=== PATIENT | female | born 1935 | race Caucasian/White ===

== ENCOUNTER 2019-03-25 10:57 | Emergency (ER) | payer MEDICARE ==
[2019-03-25 11:16] LABS: #Eosinphils 0.1 thou/uL (0.0-0.7); #Monocytes 0.5 thou/uL (0.11-0.59); #Neutrophils 4.3 thou/uL (1.40-6.50); %Basophils 0.3 % (0.0-1.0); %Eosinophils 0.8 % (0.0-10.0); %Lymphocytes 29.2 % (21.0-51.0); %Monocytes 7.5 % (0.0-10.0); %Neutrophils 62.1 % (42.0-75.0); Hemoglobin 14.2 g/dL (12.0-16.0); Mean Corpuscular HGB CONC 32.4 g/dL (32.0-36.0); Mean Corpuscular Volume 95.7 fL (78.0-98.0); Mean Platelet Volume 7.9 fL (7.4-10.4); Platelet Count 196 thou/uL (130-400); RBC Distribution Width 11.6 % (11.5-14.5); Red Blood Cell (RBC) Count 4.58 mill/uL (4.20-5.40); White Blood Cell (WBC) Count 6.9 thou/uL (4.8-10.8)
--- NOTE | 2019-03-25 11:31 | CT ---
CT BRAIN NONCONTRAST: DATE: 03/25/2019 HISTORY: 83-year-old female with level 1 stroke alert, loss of consciousness. Altered mental status. Dr. Manuel called this level 1 stroke alert protocol report stat to Dr. Thomason at 11:28 AM on 03/25/2019. FINDINGS: There is no evidence of acute intra-axial or extra-axial hemorrhage. There is no midline shift or any other mass effect. There is no extra-axial fluid collection. There is mild to moderate dilation of lateral and third ventricles.. Calvarium is intact. There is diffuse brain parenchymal volume loss. T here are low attenuation areas in the white matter. These are nonspecific, but in a patient of this age, they are probably chronic ischemic white matter changes due to microvascular atherosclerosis. Sm all focus of encephalomalacia and gliosis in the left occipital lobe. Questionable smaller such lesion at the right medial temporal region. IMPRESSION: 1) No acute intracranial findings. 2) involutional changes and chronic ischemic white matter changes. 3) small old left occipital infarction in left posterior cerebral artery territory. (Possibly another one in the right medial temporal lobe). 4) ventriculomegaly
[2019-03-25 11:35] LABS: PTT 29.2 SEC (22.9-36.1); Prothrombin Time 12.7 SEC (12.0-14.7)
[2019-03-25 11:36] LABS: ALT (SGPT) 11 U/L (8-55); AST (SGOT) 17 U/L (5-34); Albumin 3.3 g/dL (3.4-4.8); Alkaline Phosphatase 91 U/L (40-110); Anion Gap 15 mmol/L (10-20); BUN (Urea Nitrogen) 15 mg/dL (9.8-20.1); Bilirubin, Total 0.5 mg/dL (0.2-1.2); CK (CPK) 24 U/L (29-168); Calc. Creatinine Clearance 0 mL/min (70-130); Calcium 8.7 mg/dL (7.8-10.44); Carbon Dioxide 20 mmol/L (23-31); Chloride 104 mmol/L (98-107); Estimated GFR-MDRD 72; Globulin 3.3 g/dL (2.4-3.5); Glucose 96 mg/dL (83-110); Protein, Total 6.6 g/dL (6.0-8.3); Sodium 134 mmol/L (136-145)
--- NOTE | 2019-03-25 11:53 | RAD ---
EXAM: CHEST ONE VIEW HISTORY: Altered mental status. Level 1 stroke alert. COMPARISON: None FINDINGS: The cardiac silhouette and pulmonary vasculature is within normal limits. There is increased density lateral left lung base probably related to an epicardial fat pad. No obvious pleural effusion is seen, and there is no consolidation seen within the lungs bilaterally. Osteopenia is present, and the re is bilateral glenohumeral osteoarthropathy. The humeral heads also appear to be high riding bilaterally which suggests chronic bilateral rotator cuff tears. Vascular calcifications are seen in the thoracic aorta. IMPRESSION: No acute cardiopulmonary process.
[2019-03-25 12:20] LABS: Bilirubin Negative (Negative); Blood, Urine Negative (Negative); Clarity Clear (Clear); Glucose, Urine (Dipstick) Normal (Negative); Leukocyte Negative Leu/uL (Negative); Nitrite Negative (Negative); Protein, Urine (Dipstick) Negative (Neg-Trace); Urobilinogen Normal mg/dL (Less than 2)
[2019-03-25] MEDS ORDERED: Furosemide 40 MG/4 ML VIAL ONE (13:24)
== END 2019-03-25 13:45 | disposition home or self-care (01) ==
LOC: ERS 10:57
DX: R41.82 Altered mental status, unspecified (principal); E03.9 Hypothyroidism, unspecified; K21.9 Gastro-esophageal reflux disease without esophagitis; D64.9 Anemia, unspecified; I10 Essential (primary) hypertension; F03.90 Unspecified dementia, unspecified severity, without behavioral disturbance, psychotic disturbance, mood disturbance, and anxiety; F41.9 Anxiety disorder, unspecified; Z79.82 Long term (current) use of aspirin; Z86.73 Personal history of transient ischemic attack (TIA), and cerebral infarction without residual deficits; Z79.899 Other long term (current) drug therapy
CPT/HCPCS: 70450; 71045; 80053; 81003; 82550; 83690; 84484; 85025; 85610; 85730; 93005; 96374; J1940

== ENCOUNTER 2019-06-06 08:39 | Inpatient (IN) | payer MEDICARE ==
[2019-06-06 09:11] LABS: #Basophils 0.1 thou/uL (0.0-0.2); #Eosinphils 0.1 thou/uL (0.0-0.7); #Monocytes 0.7 thou/uL (0.11-0.59); #Neutrophils 4.4 thou/uL (1.40-6.50); %Basophils 0.9 % (0.0-1.0); %Lymphocytes 36.6 % (21.0-51.0); %Monocytes 7.9 % (0.0-10.0); %Neutrophils 53.5 % (42.0-75.0); Mean Corpuscular HGB CONC 32.7 g/dL (32.0-36.0); Mean Corpuscular Hemoglobin 29.5 pg (27.0-31.0); Mean Corpuscular Volume 90.5 fL (78.0-98.0); Mean Platelet Volume 8.5 fL (7.4-10.4); Platelet Count 247 thou/uL (130-400); RBC Distribution Width 12.2 % (11.5-14.5); Red Blood Cell (RBC) Count 5.09 mill/uL (4.20-5.40); White Blood Cell (WBC) Count 8.3 thou/uL (4.8-10.8)
--- NOTE | 2019-06-06 09:16 | CT ---
Exam: CT brain PROVIDED CLINICAL HISTORY: Left-sided weakness COMPARISON: 03/25/2019 FINDINGS: The ventricular system is normal in size and morphology. No evidence for intracranial hemorrhage or mass effect. The extracranial soft tissues and osseous structures demonstrate no evidence for an acute abnormality. Chronic ischemic changes appear stable. IMPRESSION: No evidence for intracranial hemorrhage or mass effect. Findings communicated to Dr. Thomason 9:13 AM 05/19.
[2019-06-06 09:52] LABS: ALT (SGPT) 17 U/L (8-55); AST (SGOT) 25 U/L (5-34); Albumin 3.5 g/dL (3.4-4.8); Alkaline Phosphatase 107 U/L (40-110); Anion Gap 16 mmol/L (10-20); BUN (Urea Nitrogen) 19 mg/dL (9.8-20.1); Bilirubin, Total 0.3 mg/dL (0.2-1.2); CK (CPK) 44 U/L (29-168); Calc. Creatinine Clearance 0 mL/min (70-130); Calcium 9.2 mg/dL (7.8-10.44); Carbon Dioxide 26 mmol/L (23-31); Chloride 98 mmol/L (98-107); Estimated GFR-MDRD 72; Globulin 3.7 g/dL (2.4-3.5); Glucose 122 mg/dL (83-110); Potassium 4.4 mmol/L (3.5-5.1); Protein, Total 7.2 g/dL (6.0-8.3); Sodium 136 mmol/L (136-145)
[2019-06-06 10:25] LABS: Bilirubin Negative (Negative); Blood, Urine Negative (Negative); Clarity Turbid (Clear); Glucose, Urine (Dipstick) Normal (Negative); Leukocyte 500 Leu/uL (Negative); Nitrite Negative (Negative); Protein, Urine (Dipstick) 10 mg/dL (Neg-Trace); Squamous Epithelial 0-3 HPF (0-3); Urobilinogen Normal mg/dL (Less than 2); WBC/HPF Greater than 50 HPF (0-3)
[2019-06-06 10:44] LABS: Bacteria/HPF 2+ HPF (None Seen)
[2019-06-06] MEDS ORDERED: Aspirin 81 mg Enteric Coated Tablet ONE (11:06)
[2019-06-06] MEDS ORDERED: cefTRIAXone\\ROCEPHIN 2 GM VIAL ONE (11:06)
[2019-06-06] MEDS ORDERED: Ondansetron PF 4 MG/2 ML Vial IVP PRN (12:10)
[2019-06-06] MEDS ORDERED: Ondansetron ODT 4 MG TAB SL PRN (12:10)
[2019-06-06 12:27] LABS: Troponin I Less than 0.010 ng/mL (< 0.028)
[2019-06-06 14:07] VITALS: BMI 18.8
[2019-06-06 15:23] LABS: Troponin I 0.019 ng/mL (< 0.028)
[2019-06-06] MEDS: Acetaminophen 325 MG TAB PO PRN (18:26)
--- NOTE | 2019-06-06 20:37 | HP ---
CHIEF COMPLAINT: Left-sided weakness and vision problems. HISTORY OF PRESENT ILLNESS: Ms. Medina is an 84-year-old female with past medical history of atrial fibrillation, hypertension, hyperlipidemia, hypothyroidism, previous CVA, was noted to have left-sided weakness since last night. The patient usually can walk with her walker, now she is unable to do so secondary to left-sided weakness, requiring lot of assistance. Also is unable to see on the left side, so she could not to openly use the walker last night and this morning. Also complaining of generalized weakness as well. The patient was trying to lean to the left side, so the patient was brought to the emergency room, where she was evaluated and found to have left-sided weakness. CT of the brain was done, which was unremarkable. She is admitted for further evaluation and management. PAST MEDICAL HISTORY: 1. Hypertension. 2. Hyperlipidemia. 3. Chronic atrial fibrillation. 4. Hypothyroidism. 5. History of CVA. 6. Gastroesophageal reflux disease. 7. History of esophagitis. 8. History of chronic anemia. 9. History of hypokalemia. PAST SURGICAL HISTORY: Status post hysterectomy, status post removal of left breast lump. CURRENT MEDICATIONS: 1. Aspirin 81 mg daily. 2. Atenolol 50 mg b.i.d. 3. Omeprazole 20 mg daily. 4. KCl 20 mEq daily. 5. Hydrochlorothiazide 25 mg daily. 6. Synthroid 137 mcg daily. 7. Melatonin 3 mg at bedtime. ALLERGIES: PENICILLIN, LEVOFLOXACIN, NORVASC. REVIEW OF SYSTEMS: CARDIOVASCULAR: No chest pain. No shortness of breath. RESPIRATORY: No fever or cough. GASTROINTESTINAL: No nausea, vomiting, or abdominal pain. CENTRAL NERVOUS SYSTEM: No headache. No dizziness. PHYSICAL EXAMINATION: GENERAL: The patient is awake, alert, not well oriented. VITAL SIGNS: Temperature 98, pulse 60, respirations 20, and blood pressure 120/ 60. HEENT: Head is normocephalic and atraumatic. Pupils are equal, round, and reactive. Nasopharynx is dry and pale. NECK: Supple. No JVD. LUNGS: Bilateral air entry present. No rales. No rhonchi. HEART: S1 and S2. Irregularly irregular. ABDOMEN: Soft. No distention. No tenderness. Normal bowel sounds present. RECTAL: Deferred. CENTRAL NERVOUS SYSTEM: The patient is alert, awake, and oriented x2. Motor system, power 4/5 in right upper and lower extremity and 3/5 in left upper and lower extremity. Deep tendon reflex 2+ bilaterally. Plantar downgoing on the right, upgoing on the left. LABORATORY DATA: CBC shows WBC 8.3, hemoglobin 15, hematocrit 46, platelets 247. Metabolic panel; sodium 136, potassium 4.4, chloride 98, CO2 of 26, urea nitrogen 19, creatinine 0.7, glucose , troponin 0.010. Urinalysis showed wbc greater than [address] bacteria 2+. CT scan of brain did not show any acute intracranial abnormalities. EKG showed atrial fibrillation with controlled ventricular rate. No acute ST-T changes seen. ASSESSMENT: 1. Acute cerebrovascular accident with left hemiparesis and visual field defect, left side. 2. Urinary tract infection. 3. Hypertension. 4. Atrial fibrillation, chronic. 5. Hypothyroidism. 6. Hyperlipidemia. PLAN: 1. Vital signs q.4 hours. 2. Activities as tolerated. 3. Allergies; penicillin, Levaquin, and Norvasc. 4. Rocephin 1 g IV piggyback daily. 5. Continue home medications. 6. Plavix 75 mg daily, aspirin 81 mg daily. 7. Diet, regular. 8. Stroke Team consult. 9. MRI of the brain in the morning. 10. Neurology consult. Job ID: [id number] MTDD
[2019-06-06] MEDS: Atenolol 50 MG TAB PO SCH (21:04)
[2019-06-06] MEDS: Melatonin 3 MG TAB PO PRN (22:51)
[2019-06-07] MEDS ORDERED: Lorazepam 2 MG/ML VIAL SLOW IVP SCH ×2 (06:00→20:00)
[2019-06-07] MEDS ORDERED: Clopidogrel Bisulfate 75 MG TAB PO SCH ×2 (09:00→16:45)
--- NOTE | 2019-06-07 09:41 | MRI ---
BRAIN MRI WITHOUT CONTRAST: Date: 06/07/2019 COMPARISON: None. HISTORY: Left-sided weakness, evaluate for acute infarction. TECHNIQUE: Multiplanar, multisequence MR imaging of the brain is obtained without contrast. FINDINGS: There is a linear focus of restricted diffusion within the thalamus on the right measuring 1.2 x 0.6 cm, consistent with an area of acute infarction. There are a few punctate foci of restricted diffusio n also seen within the occipital lobe on the right posteriorly, inferior to the occipital horn of the right lateral ventricle. The gradient echo imaging demonstrates no evidence for intracranial hemorrh age. There is encephalomalacia in the left occipital region. There is multifocal periventricular, deep, an d subcortical white matter T2 and FLAIR hyperintensity, evidence of small vessel disease. Partial opacification of the mastoid air cells noted, left greater than right. No midline shift or ma ss effect. Regional bone marrow signal intensity grossly unremarkable. There is an incompletely assessed round 1.1 cm lesion in the right cerebellopontine angle with extens ion into the right internal auditory canal. This lesion measures 1.9 cm in AP dimension and likely re presents vestibular schwannoma. This could be best assessed with a follow-up contrast enhanced MRI. Linear area of acute infarction noted within the anteromedial aspect of the right temporal lobe adjac ent to the temporal horn of the right lateral ventricle. IMPRESSION: 1. Multifocal acute infarction on the right as detailed above. No intracranial hemorrhage. 2. Lesion in the region of the cerebellopontine angle on the right extending into the region of the internal auditory canal suggesting right-sided vestibular schwannoma as detailed above. Post contras t study using an IAC protocol recommended. POS: ALONDRA
[2019-06-07] MEDS: Aspirin 81 mg Enteric Coated Tablet PO SCH (10:05)
[2019-06-07] MEDS: Hydrochlorothiazide 25 MG TAB PO SCH (10:06)
[2019-06-07] MEDS: Atenolol 50 MG TAB PO SCH ×2 (11:49→20:36)
--- NOTE | 2019-06-07 12:09 | ULT ---
BILATERAL CAROTID DUPLEX ULTRASOUND: HISTORY: Acute CVA TECHNIQUE: Grayscale, color-flow and spectral Doppler ultrasound imaging of the extracranial carotid artery syst ems and vertebral arteries was performed bilaterally. FINDINGS: There is moderate intimal thickening of the common carotid arteries bilaterally. There is moderate pa rtially calcified atherosclerotic plaque involving the left carotid bulb and proximal left ICA. There is moderate partially calcified atherosclerotic plaque involving the right carotid bulb and pro ximal right ICA. The peak systolic velocity in the right ICA measures 79.2 cm/s. The peak systolic velocity in the ri ght CCA measures 48.1 cm/s. The peak systolic velocity in the left ICA measures 87.5 cm/s. The peak systolic velocity in the l eft CCA measures 65.6 cm/s. The right IC/CC ratio is1.65. The left IC/CC ratio is 1.57. Vertebral flow: antegrade, bilaterally. . IMPRESSION: No hemodynamically significant stenosis of Both ICAs.
[2019-06-07] MEDS: cefTRIAXone\\ROCEPHIN 1 GM in Sodium Chloride 0.9% 100 ML IVPB SCH (12:39)
[2019-06-07] MEDS: Acetaminophen 325 MG TAB PO PRN ×2 (15:28→22:42)
[2019-06-07] MEDS: Melatonin 3 MG TAB PO PRN (20:36)
[2019-06-07] MEDS ORDERED: diphenhydrAMINE 12.5 MG/5 ML UDCUP PO SCH (23:45)
[2019-06-08] MEDS: Levothyroxine Sodium 25 MCG TAB PO SCH (06:52)
[2019-06-08] MEDS: Levothyroxine Sodium 112 MCG TAB PO SCH (06:52)
[2019-06-08] MEDS: Clopidogrel Bisulfate 75 MG TAB PO SCH (09:49)
[2019-06-08] MEDS: Hydrochlorothiazide 25 MG TAB PO SCH (09:49)
[2019-06-08] MEDS: Atenolol 50 MG TAB PO SCH ×2 (09:50→20:02)
[2019-06-08] MEDS: Aspirin 81 mg Enteric Coated Tablet PO SCH (09:50)
--- NOTE | 2019-06-08 11:56 | MRI ---
MRI of thebrain with and without contrast: 06/08/2019 COMPARISON: 06/07/2019 HISTORY:Incidentally noted mass in the region of the right cerebellopontine angle on recent noncontra st enhanced study TECHNIQUE: Multiplanar multisequence MR imaging of thebrain with and without contrast. An internal au ditory canal protocol was attempted. Findings:Thin section T2 weighted imaging at the skull base was performed but is nondiagnostic second kaur to motion. Postcontrast imaging is provided, demonstrating a round enhancing lesion within the right cerebellopontine angle measuring 1.4 cm in transverse dimension. This lesion extends into the i nternal auditory canal. The component of tumor within the right internal auditory canal measures 1 cm in AP dimension and the entirety of the mass measures 2.1 cm AP dimension and 1.4 cm in transverse dimension. Whole brain postcontrast imaging demonstrates no intra-axial enhancement. No additional enhancing lesion is noted. There is no abnormal enhancement involving the region of the cochlea, vestibule, or semicircular canals on either side. The left IAC appears unremarkable. IMPRESSION:Enhancing mass lesion centered in the right cerebellopontine angle with extension into the right internal auditory canal. 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
[2019-06-08] MEDS: cefTRIAXone\\ROCEPHIN 1 GM in Sodium Chloride 0.9% 100 ML IVPB SCH (12:03)
--- NOTE | 2019-06-08 16:51 | PDOC.PALCO ---
Palliative Care Consult - Consult Details Requesting Physician: Dr Car Reason for Consult: goals of care Family Members Present: Caregiver - Allergies Allergies/Adverse Reactions: Allergies Allergy/AdvReac Type Severity Reaction Status Date / Time amlodipine [From Norvasc] Allergy Unverified 06/06/19 12:09 levofloxacin [From Levaquin] Allergy Unverified 06/06/19 12:09 ofloxacin [From Floxin] Allergy Unverified 06/06/19 12:08 Penicillins Allergy Unverified 06/06/19 12:09 - Objective Vital Signs: Vital Signs - Most Recent Temp Pulse Resp BP Pulse Ox 97.6 F 66 16 159/67 H 98 06/08/19 15:09 06/08/19 15:09 06/08/19 15:09 06/08/19 15:09 06/08/19 15:09 - Plan/Recommendations Plan: *Daughter to return later. Patient has lived next door to her mother with 24/7 hour paid caregivers *Ambulates with walker and requires assistance secondary to physical deconditioning, intermittant incontinence and assistance required with ADL's *Will establish goals of care as patient appears to not be able to maintain activity that would be required at inpatient rehab, may consider SNF. *Would transition home with home health PT and if continued decline utilize hospice to mitigate symptoms in the home setting be optimal? Palliative care to continue to follow Lina Gonzales RN also seeing patient [] minutes spent on this encounter with >50% of the time in counseling and coordination of care. Thank you for this very appropriate consult.
[2019-06-08] MEDS: Acetaminophen 325 MG TAB PO PRN (17:29)
[2019-06-08] MEDS: Melatonin 3 MG TAB PO PRN (20:03)
[2019-06-08] MEDS: diphenhydrAMINE 25 MG CAP PO PRN (20:03)
--- NOTE | 2019-06-09 00:49 | CON ---
DATE OF CONSULTATION: 06/08/2019 CONSULTING PHYSICIAN: Todd Car MD IMPRESSION: 1. Basal ganglia stroke with no significant residual deficits. 2. Dementia. PLAN: 1. Add Plavix. 2. Determine path of placement. HISTORY OF PRESENT ILLNESS: Ms. Medina is an 84-year-old woman with a past history of dementia. She was living with her daughter at her house. She had been in a longterm unit for 100 days and was only recently discharged. She had a change in mental status and was brought in. She has a history of atrial fibrillation. MRI of the brain revealed a new right basal ganglia stroke. There were some tiny areas of ischemia in the right occipital lobe as well. Her urinalysis suggested a urinary tract infection. Lab work was otherwise unremarkable. Her carotid ultrasound was clear. I discussed the situation with her daughter yesterday and they were willing to let her go on Plavix. They have been very fearful of any type of anticoagulation. PAST MEDICAL HISTORY: As listed above. ALLERGIES: FLOXIN, NORVASC, PENICILLIN. SOCIAL HISTORY: No tobacco or alcohol use. FAMILY HISTORY: Noncontributory. REVIEW OF SYSTEMS: Ten-system review of systems is otherwise unremarkable. PHYSICAL EXAMINATION: GENERAL: She is a reasonably healthy-appearing elderly lady, lying in bed, in no acute distress. VITAL SIGNS: Have been stable with a blood pressure 159/67, pulse is 66 and in atrial fibrillation rhythm, respirations 16, and temperature 97.6. HEENT: Pupils are equal. Conjunctivae clear. Oropharynx clear. Cranium normocephalic and atraumatic. NECK: Supple. No lymphadenopathy. EXTREMITIES: No cyanosis. NEUROLOGIC: She was only oriented to person. I could get her to follow commands reasonably well. Her speech was fluent and clear. There was no facial asymmetry. 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 Gait was not tested. No abnormal movements were seen. SUMMARY: This is an elderly lady with history of atrial fibrillation. She has a small area of ischemia that has not left her with any focal deficits. Given their hesitancy about anticoagulation, I would agree with aspirin and Plavix as an option. The next question is placement due to her lack of ability to have any further skilled bed days. She may be a candidate for inpatient rehab. Job ID: [id number]
[2019-06-09] MEDS: Levothyroxine Sodium 25 MCG TAB PO SCH (07:13)
[2019-06-09] MEDS: Levothyroxine Sodium 112 MCG TAB PO SCH (07:13)
[2019-06-09] MEDS: Hydrochlorothiazide 25 MG TAB PO SCH (08:50)
[2019-06-09] MEDS: Acetaminophen 325 MG TAB PO PRN (08:50)
[2019-06-09] MEDS: Clopidogrel Bisulfate 75 MG TAB PO SCH (08:51)
[2019-06-09] MEDS: Aspirin 81 mg Enteric Coated Tablet PO SCH (08:51)
[2019-06-09] MEDS: Atenolol 50 MG TAB PO SCH ×2 (08:51→21:39)
[2019-06-09] MEDS: cefTRIAXone\\ROCEPHIN 1 GM in Sodium Chloride 0.9% 100 ML IVPB SCH (10:28)
[2019-06-09] MEDS: Aspirin/APAP/Caffeine Tab (Excedrin Migraine) PO PRN (19:06)
[2019-06-09] MEDS: Melatonin 3 MG TAB PO PRN (21:38)
[2019-06-09] MEDS: diphenhydrAMINE 25 MG CAP PO PRN (21:39)
[2019-06-10] MEDS: Levothyroxine Sodium 112 MCG TAB PO SCH (08:13)
[2019-06-10] MEDS: Clopidogrel Bisulfate 75 MG TAB PO SCH (08:13)
[2019-06-10] MEDS: Levothyroxine Sodium 25 MCG TAB PO SCH (08:13)
[2019-06-10] MEDS: Aspirin 81 mg Enteric Coated Tablet PO SCH (08:14)
[2019-06-10] MEDS: Hydrochlorothiazide 25 MG TAB PO SCH (08:14)
[2019-06-10] MEDS: Atenolol 50 MG TAB PO SCH ×2 (08:14→21:53)
[2019-06-10] MEDS: Aspirin/APAP/Caffeine Tab (Excedrin Migraine) PO PRN ×2 (09:38→15:40)
[2019-06-10] MEDS: cefTRIAXone\\ROCEPHIN 1 GM in Sodium Chloride 0.9% 100 ML IVPB SCH (13:17)
[2019-06-10] MEDS ORDERED: Potassium Chloride 20 MEQ TAB PO SCH ×2 (19:00→20:00)
[2019-06-10] MEDS: Acetaminophen 325 MG TAB PO PRN (21:53)
[2019-06-10] MEDS: Melatonin 3 MG TAB PO PRN (21:53)
[2019-06-10] MEDS: diphenhydrAMINE 25 MG CAP PO PRN (23:55)
[2019-06-11] MEDS ORDERED: Potassium Chloride 20 MEQ TAB PO SCH (01:00)
[2019-06-11] MEDS: Levothyroxine Sodium 112 MCG TAB PO SCH (06:12)
[2019-06-11] MEDS: Levothyroxine Sodium 25 MCG TAB PO SCH (06:12)
[2019-06-11] MEDS: Clopidogrel Bisulfate 75 MG TAB PO SCH (08:22)
[2019-06-11] MEDS: Aspirin 81 mg Enteric Coated Tablet PO SCH (08:22)
[2019-06-11] MEDS: Atenolol 50 MG TAB PO SCH (08:22)
[2019-06-11] MEDS: Hydrochlorothiazide 25 MG TAB PO SCH (08:22)
[2019-06-11 08:50] VITALS: BP 137/77; TEMP 98.4
[2019-06-11 09:55] LABS: Potassium 3.9 mmol/L (3.5-5.1)
== END 2019-06-11 13:58 | disposition hospice, home (50) | DRG 65 ==
LOC: ERS 08:39 → 2SE 12:21
PROVIDERS: ADMIT Internal Medicine; ATTEND Internal Medicine
DX: I63.89 Other cerebral infarction (principal); I48.20 Chronic atrial fibrillation, unspecified; G81.94 Hemiplegia, unspecified affecting left nondominant side; N39.0 Urinary tract infection, site not specified; Z51.5 Encounter for palliative care; F03.90 Unspecified dementia, unspecified severity, without behavioral disturbance, psychotic disturbance, mood disturbance, and anxiety; I10 Essential (primary) hypertension; E78.5 Hyperlipidemia, unspecified; K21.9 Gastro-esophageal reflux disease without esophagitis; E03.9 Hypothyroidism, unspecified; R40.2412 Glasgow coma scale score 13-15, at arrival to emergency department; H53.9 Unspecified visual disturbance; R29.703 NIHSS score 3; Z88.0 Allergy status to penicillin; Z88.1 Allergy status to other antibiotic agents; Z88.8 Allergy status to other drugs, medicaments and biological substances; Z90.710 Acquired absence of both cervix and uterus; R73.9 Hyperglycemia, unspecified
CPT/HCPCS: 36415; 70450; 70551; 70552; 80053; 81003; 81015; 82550; 84132; 84484; 85025; 87077; 87086; 87186; 93005; 93306; 93880; 96365; J0696; J2060; J3490; Q0163